=== PATIENT | male | born 1935 | race Caucasian/White ===

== ENCOUNTER → 2016-02-27 | Day surgery (SDC) | payer MEDICARE, OTHER ==
[~2016-02-27] MED LIST: ASPI325T PO; CARD240T2 PO; CEPH500C3 PO; DIOV160T3 PO; LACTATED RINGER'S 1000 ML INJ 1,000 ML ONE; LIDOCAINE 1%/EPINEPHrine 1:100,000 SOLN 20 ML VIAL ONE; LORT7.5T3 PO; MIDAZOLAM HCL 2 MG/2 ML VIAL ONE; PRAV40TA PO; PROPOFOL 200 MG/20 ML AMP IV ONE; PROS5TAB2 PO; RANI300T PO; RAPA8CAP OR; TEKT300T PO; VIAG50TA PO; [UNRECOGNIZED DRUG - CODE] PO
--- NOTE | 2016-02-27 20:51 | TN ---
cc: ASHLEE BERTRAND M.D. DATE OF SURGERY 02/27/2016 PREOPERATIVE DIAGNOSIS Left temporal headaches. POSTOPERATIVE DIAGNOSIS Left temporal headaches. PROCEDURE Left temporal artery biopsy. SURGEON Dr. Ashlee Bertrand [employer] OPERATOR JESSE Colon ANESTHESIA Local TIVA. INDICATIONS This is a pleasant 80-year-old gentleman who is not a person who gets headaches who experienced severe left temporal headache. He was seen by the bulldozer operator who had concern for temporal arteritis. CRP and ESR were normal. He was placed prophylactically on steroids by his primary care physician. He saw Dr. Elliot Gavin who was in agreement with recommending temporal artery biopsy. The patient's headaches on the day of surgery had lessened in severity due to he thinks withdrawal of Neurontin though he has been on the prednisone. INTRAOPERATIVE FINDINGS Successful excision of greater than 2 cm segment of left temporal artery. Sent to pathology. Estimated blood loss is minimal. DESCRIPTION OF PROCEDURE IN DETAIL The patient identified as Evelio Valentin, taken to the operating room and placed in the supine position. Following IV sedation by anesthesia, left temporal area was prepped and draped in usual sterile fashion with Betadine. Proposed incision was made with a marking pen. A time-out procedure was performed. Following completion of time-out procedure to everyone's satisfaction within the room, 1% lidocaine with epinephrine was injected in the proposed surgical site. The incision was carried out with scalpel and hemostasis controlled with electrocautery. Dissection continued posteriorly through the temporal fascia to where the temporal artery was identified. The temporal artery was then isolated from surrounding tissues proximally and distally, was ligated with a mosquito hemostat as well as one side branch. The intervening segment was excised with scissors and each end and the side branch were ligated with a 4-0 silk tie. The wound was irrigated with remaining local anesthetic and closed in single layer using interrupted inverted 4-0 Monocryl subcuticular sutures. Dressings were applied with Mastisol and one-half inch brown Steri-Strips. The patient tolerated the procedure without apparent complication. Sponge, needle and instrument counts were correct at the end of the case. MD ANILA Ramirez/RAMONA /3:23 PM /8:43 PM
== END | disposition home or self-care (01) ==
LOC: ESDC 12:13
PROVIDERS: ATTEND Surgery Trauma Surgery
DX: R51 Headache (principal)
CPT/HCPCS: 00352; 37609; 88305; J2250; J3010; J7120; 88307